=== PATIENT | male | born 1995 | race Caucasian/White ===

== ENCOUNTER 2022-06-26 19:40 | Emergency (ER) | payer BC, SELFPAY ==
[2022-06-26] VITALS (15 sets, daily range): BP systolic 117–134; BP diastolic 73–89; PULSE 72–98; RESP 14–25; TEMP 36.6; O2SAT 99–100
--- NOTE | ~2022-06-26 | CT_ITS ---
Clinical Indication: Chest pain CT Scan of the Chest with Contrast: Technique: Contiguous sections were acquired throughout the chest after intravenous administration of 100 cc of Omnipaque 350. Dose reduction technique was used on this scan by utilizing automated expos ure control and iterative reconstruction technique. The dose-length product (DLP) was 180.42 mGy-cm. Findings: There is no evidence of any significant mediastinal, hilar or axillary lymphadenopathy. There is no f illing defect in the pulmonary arterial tree to suggest pulmonary embolus. There is no evidence of ao rtic dissection or aneurysm. There is no evidence of pleural or pericardial effusion. The lungs are clear. No pulmonary nodules or infiltrates are noted. Images through the upper abdomen reveal no abnormalities. Impression: No evidence of pulmonary embolus, aortic dissection, or aortic aneurysm. Clear lungs. Reviewed, dictated and finalized at [facility]. [employer] Impression: No evidence of pulmonary embolus, aortic dissection, or aortic aneurysm. Clear lungs.
--- NOTE | ~2022-06-26 | XR_ITS ---
EXAMINATION: XR chest 2V Exam Date/Time: 06/26/2022 20:00 [employer]IST HISTORY: chest wall pain, pt fell on concrete, rt sided pain Comparison: None available. RESULT: Lines, tubes, and devices: None. Lungs and pleura: Clear. Cardiomediastinal silhouette: Stable. Other: No acute osseous or upper abdominal finding. Thoracic scoliosis. IMPRESSION: No acute cardiopulmonary process. Reviewed, dictated and finalized at location [facility]. T SPECIALIST
--- NOTE | 2022-06-26 19:46 | ECG_ITS ---
Measurements Intervals [place] Rate: 77 P: 41 SC: 117 QRS: 52 QRSD: 106 T: 28 QT: 307 QTc: 348 Interpretive Statements SINUS RHYTHM WITH SHORT SC INTERVAL NONSPECIFIC T-WAVE ABNORMALITY ABNORMAL ECG NO PREVIOUS ECG AVAILABLE FOR COMPARISON Electronically Signed On 06-27-2022 12:03:06 UNIT MANAGER by Jose Ramon Villasenor M.D.
[2022-06-26] MEDS: KETOROLAC 30 MG/ML VIAL (*BKC) 15 MG IV PUSH (20:42)
[2022-06-26 20:51] LABS: Basophils Percent Auto 0.4 % (0.2-1.2); Eosinophils Percent Auto 0.3 % (0-4.4); Hematocrit 46.3 % (42.0-52.0); Hemoglobin 16.1 g/dL (14.0-18.0); Immature Granulocyte Absolute 0.01 K/mm3 (0.00-0.031); Immature Granulocyte Percent A 0.1 % (0-0.5); Lymphocytes Absolute Auto 2.67 K/mm3 (0.9-3.2); Lymphocytes Percent Auto 37.6 % (18.3-44.2); Mean Corpuscular HGB Conc 34.8 g/dl (32-36); Mean Corpuscular Hemoglobin 31.9 pg (26-34); Mean Corpuscular Volume 91.7 fl (80-100); Mean Platelet Volume 10.6 fl (7.4-10.4); Monocytes Absolute Auto 0.5 K/mm3 (0.1-0.6); Monocytes Percent Auto 6.6 % (2.6-8.5); Neutrophils Absolute Auto 3.9 K/mm3 (1.3-6.7); Platelet Count Result 214 k/mm3 (150-375); Red Blood Count 5.05 M/mm3 (4.6-6.20); Red Cell Distribution Width 12.1 % (11.5-14.5); White Blood Count 7.1 K/mm3 (4.5-10.0)
[2022-06-26 21:03] LABS: Prothrombin Time 12.9 Seconds (11.1-14.7)
[2022-06-26 21:04] LABS: Alanine Aminotransferase 19 U/L (6-50); Albumin Level 5.4 g/dL (3.5-5.1); Alkaline Phosphatase 70 U/L (38-126); Anion Gap 12 mmol/L (8-16); Aspartate Amino Transferase 25 U/L (17-59); Bilirubin,Total 0.9 mg/dL (0.2-1.3); Blood Urea Nitrogen 8 mg/dL (9-20); Calcium 9.2 mg/dL (8.4-10.2); Carbon Dioxide 26 mmol/L (22-30); Chloride 102 mmol/L (98-107); Estimated CRCL calculation 82 ml/min; Estimated Glomerular Filt Rate > 60; Glucose 104 mg/dL (65-110); Lipase 113 U/L (23-300); Magnesium 2.3 mg/dL (1.6-2.3); Partial Thromboplastin Time 28.1 SECONDS (22.3-36.8); Sodium 140 mmol/L (137-145)
--- NOTE | 2022-06-26 21:09 | ED.GENADULT ---
HPI - General Adult General Chief complaint: Chest Pain Stated complaint: rib pain post fall Time Seen by Provider: 06/26/22 19:53 History of Present Illness HPI narrative: Is a 26-year-old gentleman who presents to the emergency department with chief complaint of right-sided chest pain patient reports that approximately 2 weeks ago he was walking down a sidewalk hit a patch where a chunk of concrete had come out fell and struck the right side of his chest against the concrete. The patient reports since then he has had sharp pleuritic pain on the right side of his chest worse with inspiration reports that he is coughed up little bit of blood and reports that now it hurts on the left side of his chest. Related Data Allergies Allergy/AdvReac Type Severity Reaction Status Date / Time No Known Allergies Allergy Verified 06/26/22 20:42 Review of Systems Review of Systems: A 10 system review of systems was completed on the patient and is negative except for what is stated in the HPI. Nursing and ancillary documentation was reviewed. Exam Narrative: GENERAL: Well-appearing, well-nourished, and in no acute distress. HEAD: Normocephalic, atraumatic. EYES: PERRLA and EOMI. ENT: Nares clear, no rhinorrhea or epistaxis. Mucous membranes moist. NECK: Supple. CHEST: Clear to auscultation. No respiratory distress. Tenderness to palpation in the right side of the chest HEART: Regular rate and rhythm. No murmur heard. Normal peripheral pulses. ABDOMEN: Soft, nontender, nondistended, normal active bowel sounds. EXTREMITIES: Normal range of motion. No edema. SKIN: Warm, dry, no rash. NEURO: No focal deficits. Alert and oriented x3. PSYCH: Normal mood and affect. Course Vital Signs Vital signs: Vital Signs Temperature 36.6 C 06/26/22 19:48 Pulse Rate 80 06/26/22 19:48 Respiratory Rate 15 06/26/22 19:48 Blood Pressure 134/74 06/26/22 19:48 Pulse Oximetry 99 06/26/22 19:48 Temperature 36.6 C 06/26/22 19:48 Pulse Rate 82 06/26/22 22:30 Respiratory Rate 19 06/26/22 22:30 Blood Pressure 129/82 06/26/22 22:30 Pulse Oximetry 100 06/26/22 22:30 Medical Decision Making MDM Narrative Medical decision making narrative: EKG is sinus rhythm rate of [address] elevation or ST depression Chest x-ray was obtained and showed no evidence of pneumothorax no obvious displaced rib fractures. Due to the blood in his sputum whenever he is coughed CTA of the chest was ordered as well as laboratory studies. Differential diagnoses include pneumothorax pneumonia rib fractures, rib contusions ACS, CTA chest showed no evidence of PE no evidence of dissection. No evidence of displaced rib fracture or pneumothorax or pneumonia. Laboratory study showed a negative troponin and no acute laboratory abnormalities Vital Signs Vital Signs: Vital Signs Temperature 36.6 C 06/26/22 19:48 Pulse Rate 80 06/26/22 19:48 Respiratory Rate 15 06/26/22 19:48 Blood Pressure 134/74 06/26/22 19:48 Pulse Oximetry 99 06/26/22 19:48 Temperature 36.6 C 06/26/22 19:48 Pulse Rate 82 06/26/22 22:30 Respiratory Rate 19 06/26/22 22:30 Blood Pressure 129/82 06/26/22 22:30 Pulse Oximetry 100 06/26/22 22:30 Lab Data 06/26/22 20:43 06/26/22 20:43 Labs: Lab Results 06/26/22 06/26/22 06/26/22 Range/Units 20:43 20:43 20:43 WBC 7.1 (4.5-10.0) K/mm3 RBC 5.05 (4.6-6.20) M/mm3 Hgb 16.1 (14.0-18.0) g/dL Hct 46.3 (42.0-52.0) % MCV 91.7 (80-100) fl MCH 31.9 (26-34) pg MCHC 34.8 (32-36) g/dl RDW 12.1 (11.5-14.5) % Plt Count 214 (150-375) k/mm3 MPV 10.6 H (7.4-10.4) fl Immature Gran % (Auto) 0.1 (0-0.5) % Neut % (Auto) 55.0 (45.5-73.1) % Lymph % (Auto) 37.6 (18.3-44.2) % [place] % (Auto) 6.6 (2.6-8.5) % Eos % (Auto) 0.3 (0-4.4) % Baso % (Auto) 0.4 (0.2-1.2) % Lymph # (Auto) 2.67 (0.9-3
[2022-06-26 21:15] LABS: Troponin I < 0.012 ng/mL (0.000-0.034)
--- NOTE | 2022-06-26 22:35 | PC.NURSE ---
2216 Assumed pt care from Latoya Serrano RN
== END 2022-06-26 23:15 | disposition home or self-care (01) ==
PROVIDERS: Emergency Provider Emergency Medicine
DX: R07.89 Other chest pain (principal); R94.31 Abnormal electrocardiogram [ECG] [EKG]
CPT/HCPCS: 36415; 71046; 71275; 80053; 83605; 83690; 83735; 84484; 85025; 85610; 85730; 93005; 96374; 99284; J1885; Q9967